=== PATIENT | male | born 1980 | race Hispanic/Latino ===

== ENCOUNTER 2024-10-18 11:26 | Outpatient (CLI) | payer SELFPAY ==
[2024-10-18 13:24] LABS: #Basophils 0.04 10x3/uL (0.0-0.2); %Basophils 0.6 % (0.0-1.0); %Eosinophils 4.2 % (0.0-10.0); %Lymphocytes 24.1 % (21.0-51.0); %Monocytes 6.8 % (0.0-10.0); %Neutrophils 64.1 % (42.0-75.0); Hemoglobin 14.5 g/dL (14.0-18.0); Mean Corpuscular HGB CONC 35.4 g/dL (32.0-36.0); Mean Corpuscular Hemoglobin 29.2 pg (27.0-31.0); Mean Corpuscular Volume 82.7 fL (78.0-98.0); Mean Platelet Volume 9.8 fL (7.4-10.4); Platelet Count 271 10x3/uL (130-400); RBC Distribution Width 13.6 % (11.5-14.5); Red Blood Cell (RBC) Count 4.96 mill/uL (4.70-6.10)
[2024-10-18 13:38] LABS: Anion Gap 12 mmol/L (10-20); BUN (Urea Nitrogen) 23 mg/dL (8.9-20.6); Calc. Creatinine Clearance 0 mL/min (70-130); Calcium 9.7 mg/dL (7.8-10.44); Carbon Dioxide 25 mmol/L (22-29); Chloride 103 mmol/L (98-107); Estimated GFR 116; Glucose 148 mg/dL (70-105); Sodium 136 mmol/L (136-145)
== END 2024-10-18 11:27 | disposition home or self-care (01) ==
LOC: LABBT 11:26
PROVIDERS: ATTEND Orthopaedic Surgery
DX: Z01.818 Encounter for other preprocedural examination (principal); S52.501A Unspecified fracture of the lower end of right radius, initial encounter for closed fracture
CPT/HCPCS: 80048; 85025; 93005; 93010

== ENCOUNTER 2024-10-23 05:55 | Day surgery (SDC) | payer SELFPAY ==
[2024-10-18 11:47] VITALS: BMI 30.4
[2024-10-23] MEDS ORDERED: EPINEPHrine 1 MG/ML VIAL ONE (07:19)
[2024-10-23] MEDS ORDERED: fentaNYL 50 mcg/mL 1 mL Vial ONE (07:19)
[2024-10-23] MEDS ORDERED: Bupivacaine PF 0.5% 30 ML VIAL ONE ×2 (07:19→08:25)
[2024-10-23] MEDS ORDERED: Midazolam HCl 2 mg/2 ml Vial ONE ×2 (07:19→08:34)
[2024-10-23] MEDS ORDERED: fentaNYL PF 100 MCG/2 ML SYRINGE ONE (08:21)
[2024-10-23] MEDS ORDERED: PROPOFOL 20 ML ONE (08:21)
[2024-10-23] MEDS ORDERED: Ketorolac Tromethamine 30 MG (1 mL) VIAL ONE (08:21)
[2024-10-23] MEDS ORDERED: Ondansetron PF 4 MG/2 ML Vial ONE (08:21)
[2024-10-23] MEDS ORDERED: Dexamethasone 20 MG/5 ML VIAL ONE (08:21)
[2024-10-23] MEDS ORDERED: Lidocaine 1% PF 5 ML VIAL ONE (08:21)
[2024-10-23] MEDS ORDERED: CEFAZOLIN 2 GM VIAL ONE (08:34)
[2024-10-23] MEDS ORDERED: Sodium Chloride 0.9% 0 ML ONE (08:34)
[2024-10-23] MEDS ORDERED: PHENYLEPHRINE-NS 100 MCG/ML 10 ML SYRINGE ONE (09:28)
== END 2024-10-23 12:55 | disposition home or self-care (01) ==
LOC: SDC 05:55
PROVIDERS: ATTEND Orthopaedic Surgery
PROC: 3E0T3BZ Introduction of Anesthetic Agent into Peripheral Nerves and Plexi, Percutaneous Approach (ICD-10-PCS; principal; 2024-10-23)
PROC: 0PSH04Z Reposition Right Radius with Internal Fixation Device, Open Approach (ICD-10-PCS; principal; 2024-10-23)
DX: S52.571A Other intraarticular fracture of lower end of right radius, initial encounter for closed fracture (principal); S52.572A Other intraarticular fracture of lower end of left radius, initial encounter for closed fracture; I10 Essential (primary) hypertension; E11.9 Type 2 diabetes mellitus without complications; Z79.84 Long term (current) use of oral hypoglycemic drugs; Z79.899 Other long term (current) drug therapy; W11.XXXA Fall on and from ladder, initial encounter
CPT/HCPCS: C1713; J0171; J0665; J1100; J1885; J2250; J2405; J2704; J3010